=== PATIENT | male | born 1975 | race Caucasian/White ===

== ENCOUNTER 2017-10-06 13:32 | Emergency (ER) | payer OTHER, BC ==
[2017-10-06 13:37] VITALS: BMI 39.1
[2017-10-06 13:53] VITALS: RESP 18; TEMP 98.2
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
[2017-10-06 17:00] VITALS: BP 131/78; PULSE 78; O2SAT 98
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
== END 2017-10-06 17:20 | disposition home or self-care (01) ==
LOC: ED 13:32
DX: M25.511 Pain in right shoulder (principal); M54.2 Cervicalgia; S09.90XA Unspecified injury of head, initial encounter; V79.40XA Driver of bus injured in collision with unspecified motor vehicles in traffic accident, initial encounter; Y99.0 Civilian activity done for income or pay; E11.9 Type 2 diabetes mellitus without complications